=== PATIENT | female | born 1980 | race Caucasian/White ===

== ENCOUNTER → 2016-10-05 | Outpatient (CLI) | payer OTHER ==
[~2016-10-05] MED LIST: [UNRECOGNIZED DRUG - OTHER]
--- NOTE | ~2016-10-05 | US6 ---
[facility] A Service of [facility] & [facility] RADIOLOGY TEXT RESULTS PATIENT: CASTILLO SANTOS LOCATION: [facility] : 82 UNIT #: [id number] AGE: [address]: Alhaji Foote MD SEX: F ORDER DR: [id number] [facility] [address] [place], [place] [address] [id number] O MR#: [id number] Acc #: [id number] NAME: CASTILLO SANTOS : 1980 SEX: F STUDY DATE/TIME: 10/05/2016 8:11 UNIT: [facility] ROOM: STUDY DESCRIPTION: US Abdominal Limited Attending Physician: Alhaji Foote M.D. Referring Physician: Alhaji Foote M.D. Ordering Physician: Alhaji Foote M.D. Primary Care Physician: Angela Pérez A.P.R.N. MEDICAL IMAGING REPORT This report is preliminary unless electronic signature is present EXAM Right upper quadrant ultrasound 10/05/2016 HISTORY Right upper quadrant abdominal pain for 3 weeks intermittently. FINDINGS Ultrasound examination of the gallbladder is negative. There is no cholelithiasis, gallbladder wall thickening, or bile duct dilatation. The visualized liver is negative. IMPRESSION Negative gallbladder ultrasound examination. Dictated by... Bob Trejo M.D. THIS IS AN ELECTRONICALLY VERIFIED REPORT Bob Trejo M.D. at 10/06/2016 7:27 AM NAZ/rosas TD: 10/05/2016 13:16 JOB #: [id number] MEDICAL IMAGING REPORT Page 1 of 1 COPY
--- NOTE | ~2016-10-05 | NM22 ---
[facility] A Service of [facility] RADIOLOGY TEXT RESULTS PATIENT: CASTILLO SANTOS LOCATION: [facility] : 82 UNIT #: [id number] AGE: [address]: Alhaji Foote MD SEX: F ORDER DR: [id number] [facility] [address] [place], [place] [address] [id number] O MR#: [id number] Acc #: [id number] NAME: CASTILLO SANTOS : 1980 SEX: F STUDY DATE/TIME: 10/05/2016 8:49 UNIT: [facility] ROOM: STUDY DESCRIPTION: NM Hepatobiliary W GB Pharm Attending Physician: Alhaji Foote M.D. Referring Physician: Alhaji Foote M.D. Ordering Physician: Alhaji Foote M.D. Primary Care Physician: Angela Pérez A.P.R.N. MEDICAL IMAGING REPORT This report is preliminary unless electronic signature is present EXAM HIDA scan with Kinevac CCK 10/05/2016 HISTORY Right upper quadrant abdominal pain and right side chest pain and acid reflux, right shoulder pain for 3 weeks. FINDINGS The patient received an intravenous injection of 5.68 mCi of technetium 99m tagged Choletec for hepatobiliary imaging. 1 hour following the injection of the radiopharmaceutical the patient received intravenous injection 1.3 mcg of Kinevac. There is homogeneous distribution of the radiotracer throughout the liver. Gallbladder activity was seen by 15 minutes post injection of the radiopharmaceutical. Following Kinevac injection the gallbladder ejection fraction was 73% (normal is greater than 30%). IMPRESSION Normal HIDA scan with gallbladder ejection fraction of 73%. Dictated by... Bob Trejo M.D. THIS IS AN ELECTRONICALLY VERIFIED REPORT Bob Trejo M.D. at 10/06/2016 7:27 AM KRT/to TD: 10/05/2016 16:11 JOB #: [id number] MEDICAL IMAGING REPORT Page 1 of 1 COPY
[2016-10-05 10:35] LABS: HEMATOCRIT 42.3 % (35.0-45.0); MEAN CELL VOLUME 86.8 FL (83-96); MEAN CORPUSCULAR HEMOGLOBIN 28.7 PG (28-34); MEAN CORPUSCULAR HGB CONC 33.1 g/dL (30-36); MEAN PLATELET VOLUME 9.9 FL (6.5-11.5); RED BLOOD COUNT 4.88 X10e (3.90-5.30); RED CELL DISTRIBUTION WIDTH 14.1 % (11.0-15.5)
[2016-10-05 11:10] LABS: ALBUMIN SERUM 4.2 g/dL (3.5-5.0); BILIRUBIN,TOTAL 1.5 mg/dL (0.2-2.0); CREATININE SERUM 0.8 mg/dL (0.6-1.4); GLOM FILT RATE Estimated 95.6 mL/min (>60); PROTEIN TOTAL SERUM 7.6 g/dL (6.0-8.3)
== END | disposition home or self-care (01) ==
LOC: CGUS 07:29
PROVIDERS: Internal Medicine Gastroenterology
DX: R10.10 Upper abdominal pain, unspecified (principal); M25.519 Pain in unspecified shoulder
CPT/HCPCS: 36415; 76705; 78227; 80053; 82150; 83690; 85027; A9537; J2805